=== PATIENT | female | born 1960 | race Caucasian/White ===

== ENCOUNTER → 2019-06-05 | Outpatient (CLI) | payer BC, OTHER | LOC: LAB.O 10:22 | PROVIDERS: ATTEND Family Medicine | DX: Z00.00 Encounter for general adult medical examination without abnormal findings (principal); Z13.220 Encounter for screening for lipoid disorders ==

== ENCOUNTER → 2019-11-21 | Outpatient (CLI) | payer BC, OTHER ==
--- NOTE | 2019-11-25 16:06 | MAM ---
EXAM DESCRIPTION: 3D Screening BILATERAL : Digital Mammography. CLINICAL HISTORY: 59 years Female SCREENING FOR MALIGNANT NEOPLASM OF BREAST . No complaints. No personal or family history of breast cancer. Menarche age 12. Childbirth age 22. Menopause age 52. No HRT. Lifetime risk of developing breast cancer (Tyrer-Cuzick model)(%): 8.3. COMPARISON: Baseline study at this facility.. No prior reports available. TECHNIQUE: Bilateral CC and MLO projection full-field images, digital tomosynthesis mammographic technique. Bilateral digital 2-D full-field MLO images. CAD for 2-D images. FINDINGS: The breast parenchymal density pattern is: Scattered areas of fibroglandular density. No skin thickening or nipple retraction. Skin mole marker superior lateral left breast. Architectural distortion retroareolar right breast at 12:00. No new focal, stellate mass or density, focal asymmetry , and no suspicious microcalcifications left breast. IMPRESSION: BI-RADS CATEGORY: 0 - INCOMPLETE- Need additional imaging evaluation. FOLLOW-UP: Recall for additional imaging: Right breast LM full-field 2-D and tomosynthesis images. CC projection spot compression retroareolar right breast 2-D and tomosynthesis images. Dedicated right breast ultrasound.. Written communication concerning the IMPRESSION and Follow-up, will be mailed to the patient and referring health care provider. Electronically signed by: Felice Alfonso MD 11/25/2019 4:05 PM REGISTERED NURSE
== END ==
LOC: MAMMO 10:06
PROVIDERS: ATTEND Family Medicine
DX: Z12.31 Encounter for screening mammogram for malignant neoplasm of breast (principal)

== ENCOUNTER → 2020-11-18 | Outpatient (CLI) | payer BC, OTHER | LOC: YCFC.O 10:30 | PROVIDERS: ATTEND Family Medicine | DX: R53.83 Other fatigue (principal); K21.9 Gastro-esophageal reflux disease without esophagitis; E78.5 Hyperlipidemia, unspecified ==

== ENCOUNTER → 2020-12-09 | Outpatient (CLI) | payer BC, OTHER ==
--- NOTE | 2020-12-10 07:28 | MAM ---
EXAM DESCRIPTION: 3D Screening BILATERAL : Digital Mammography. CLINICAL HISTORY: 60 years Female screening . No complaints and no family history of breast cancer. Menarche age 12. Childbirth age 21. Menopause age 50. No HRT. Lifetime risk of developing breast cancer (Tyrer-Cuzick model)(%): 6.6. COMPARISON: Bilateral screening digital breast tomosynthesis October 2019 TECHNIQUE: Bilateral CC and MLO projection full-field images, digital tomosynthesis mammographic technique. Bilateral digital 2-D full-field MLO images. CAD available for 2-D images. FINDINGS: The breast parenchymal density pattern is: Scattered areas of fibroglandular density. Solitary microcalcifications. No skin thickening or nipple retraction No new focal, stellate mass or density, focal asymmetry , and no suspicious microcalcifications bilaterally. Stable mammograms compared to prior study. IMPRESSION: No suspicious or significant imaging findings. BIRAD CATEGORY: 1 - NEGATIVE RECOMMENDATIONS: FOLLOW UP: Routine digital bilateral screening, one year interval from November 2020 Written communication explaining the findings and follow-up, will be mailed to the patient and referring health care provider. According to the [employer], yearly mammograms are recommended starting at age 40 and continuing as long as a woman is in good health. Any breast change noted on a breast self-exam should be reported promptly to the patient's healthcare provider. Breast MRI is recommended for women with an approximately 20-25% or greater lifetime risk of breast cancer, including women with a strong family history of breast or ovarian cancer and women who have been treated for Hodgkin's disease. A negative mammographic report should not delay tissue diagnosis in patients with significant clinical history or physical findings. Extremely dense breast tissue limits the sensitivity of digital mammography. The region of interest should be followed on clinical grounds and if noted to change in size or character, a directed follow-up ultrasound examination may be performed. Electronically signed by: Felice Alfonso MD 12/10/2020 7:27 AM RESEARCH BIOLOGIST
== END ==
LOC: MAMMO 09:29
PROVIDERS: ATTEND Family Medicine
DX: Z12.31 Encounter for screening mammogram for malignant neoplasm of breast (principal)